=== PATIENT | female | born 1970 | race Caucasian/White ===

== ENCOUNTER 2021-04-20 14:28 | Outpatient (RCR) | payer OTHER | END 2021-04-23 | LOC: OT 14:28 | PROVIDERS: ATTEND Specialist | DX: S42.211D Unspecified displaced fracture of surgical neck of right humerus, subsequent encounter for fracture with routine healing (principal) ==

== ENCOUNTER 2021-05-03 13:45 | Outpatient (RCR) | payer OTHER | END 2021-05-23 | LOC: OT 13:45 | PROVIDERS: ATTEND Specialist | DX: S42.211D Unspecified displaced fracture of surgical neck of right humerus, subsequent encounter for fracture with routine healing (principal) ==